=== PATIENT | male | born 1985 | race Caucasian/White ===

== ENCOUNTER 2019-02-09 13:56 | Emergency (ER) | payer BC ==
[2019-02-09] MEDS ORDERED: Ketorolac 30 MG/ML SDV IVPUSH ONE (14:02)
[2019-02-09] MEDS ORDERED: Sodium Chloride 0.9% 1,000 ML IV ONE (14:02)
[2019-02-09] MEDS ORDERED: Ondansetron 4 MG/2 ML SDV IVPUSH ONE (14:07)
[2019-02-09] MEDS ORDERED: Morphine 4 MG/ML Syringe IVPUSH ONE (14:07)
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
[2019-02-09 15:17] LABS: CARBON DIOXIDE,CO2 26.4 mmol/L (21.0-32.0)
[2019-02-09] MEDS ORDERED: Tamsulosin 0.4 MG Cap.ER PO ONE (16:00)
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
== END 2019-02-09 16:44 | disposition home or self-care (01) ==
LOC: MW.ED 13:56
DX: N13.2 Hydronephrosis with renal and ureteral calculous obstruction (principal)
CPT/HCPCS: 36415; 74176; 80053; 81001; 85025; 96361; 96374; 96375; 99284; J1885; J2270; J2405; J7040; 99283

== ENCOUNTER 2019-02-23 08:56 | Day surgery (SDC) | payer BC ==
[~2019-02-23 08:56] MED LIST: Lactated Ringers 1,000 ML IV SCH; Sodium Chloride 0.9% 10 ML SDV IV PRN; Sodium Chloride 0.9% 10 ML Syringe FLUSH PRN; Sodium Chloride 0.9% 2.5 ML Syringe FLUSH PRN; ceFAZolin 1 GM Vial IV ONE
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
[2019-02-23] MEDS ORDERED: Iopamidol 408 MG/ML 50 ML SDV ONE (10:19)
[2019-02-23] MEDS ORDERED: Ondansetron 4 MG/2 ML SDV ONE (10:22)
[2019-02-23] MEDS ORDERED: Lidocaine 2% 5 ML SDV ONE (10:22)
[2019-02-23] MEDS ORDERED: Midazolam 1 MG/ML 2 ML SDV ONE (10:22)
[2019-02-23] MEDS ORDERED: fentaNYL 250 MCG/5 ML SDV ONE (10:23)
[2019-02-23] MEDS ORDERED: Propofol 200 MG/20 ML SDV ONE (10:26)
[2019-02-23] MEDS ORDERED: ceFAZolin/Dextrose,Iso-Osmotic 2 GM/50 ML Duplex Bag IV ONE (11:07)
[2019-02-23] MEDS ORDERED: HYDROmorphone 2 MG/ML Syringe ONE (11:12)
[2019-02-23] MEDS ORDERED: Albuterol 0.083% 2.5 MG/3 ML Neb Soln NEB PRN (11:57)
[2019-02-23] MEDS ORDERED: Atropine 0.1 MG/ML 10 ML Syringe IVPUSH PRN ×2 (11:57)
[2019-02-23] MEDS ORDERED: 50% Dextrose in Water 50 ML Syringe IVPUSH PRN (11:57)
[2019-02-23] MEDS ORDERED: EPINEPHrine 1:10,000 1 MG/10 ML Syringe IVPUSH PRN (11:57)
[2019-02-23] MEDS ORDERED: Naloxone 0.4 MG/ML Syringe IVPUSH PRN (11:57)
[2019-02-23] MEDS ORDERED: fentaNYL 100 MCG/2 ML SDV IVPUSH PRN (11:57)
[2019-02-23] MEDS ORDERED: Acetaminophen/HYDROcodone 325-5 MG Tab PO PRN (12:19)
[2019-02-23] MEDS ORDERED: Ketorolac 30 MG/ML SDV IVPUSH ONE (12:19)
[2019-02-23] MEDS ORDERED: Ondansetron 4 MG Tab PO PRN (12:19)
--- NOTE | 2019-02-23 12:43 | PCM.POSTAN ---
POST ANESTHESIA ASSESSMENT - MENTAL STATUS Mental Status: Alert, Oriented - VITAL SIGNS Vital Signs: Last Vital Signs Temp 98.8 F 02/23/19 12:14 Pulse 76 02/23/19 12:39 Resp 11 L 02/23/19 12:39 BP 123/67 02/23/19 12:39 Pulse Ox 97 02/23/19 12:39 - RESPIRATORY Respiratory Status: Respiratory Rate WNL, Airway Patent, O2 Saturation Stable - CARDIOVASCULAR CV Status: Pulse Rate WNL, Blood Pressure Stable - GASTROINTESTINAL GI Status: No Symptoms - PAIN Pain Score: 0 - POST OP HYDRATION Hydration Status: Adequate & Stable - OBSERVATIONS Free Text/Narrative:: Pt stable with no complaints. VSS. No apparent anesthesia complications.
--- NOTE | 2019-02-23 12:53 | PCM48HPAN ---
Post Anesthesia Note - EVALUATION WITHIN 48HRS OF ANESTHETIC Vital Signs in Normal Range: Yes Patient Participated in Evaluation: Yes Respiratory Function Stable: Yes Airway Patent: Yes Cardiovascular Function Stable: Yes Hydration Status Stable: Yes Pain Control Satisfactory: Yes Nausea and Vomiting Control Satisfactory: Yes Mental Status Recovered: Yes Vital Signs: Last Vital Signs Temp 98.8 F 02/23/19 12:14 Pulse 76 02/23/19 12:39 Resp 11 L 02/23/19 12:39 BP 123/67 02/23/19 12:39 Pulse Ox 97 02/23/19 12:39 - COMMENTS/OBSERVATIONS Free Text/Narrative:: Pt stable and family @ bedside.
--- NOTE | 2019-02-23 16:58 | OR ---
SURGEON: Rayna Ro M.D. DATE OF PROCEDURE: 02/23/2019 PREOPERATIVE DIAGNOSIS: Left ureteral stone, 6 mm. POSTOPERATIVE DIAGNOSIS: Left ureteral stone, 6 mm. OPERATIONS: Left ureteroscopy, laser lithotripsy, stone removal, double-J stent placement. DESCRIPTION OF PROCEDURE: The patient was given general anesthesia. He was placed in dorsal lithotomy position, prepped and draped in sterile drapes. Cystourethroscopy was done that was normal. A guidewire was advanced in the left ureter, but could not go beyond the stone, so a Glidewire was used to gain access into the renal pelvis alongside the stone. The lower ureter was then dilated using UroMax II balloon dilator to approximately 15-Guyanese. Rigid ureteroscope was used to gain access into the ureter. The stone was visualized and broken up into multiple small pieces that were removed. At the end, a 6-Guyanese 26 cm double-J stent was placed. The position was confirmed on fluoroscopy. The bladder was emptied. The string at the end of the stent was taped to the outside of the penis. The patient tolerated the procedure well and was moved to recovery room in good condition. PLAN: He comes to the office in 1 week to have his double-J stent taken out. FRANK / JOHANN /[id number]
[2019-02-24] MEDS ORDERED: Tamsulosin 0.4 MG Cap.ER PO SCH (09:00)
--- NOTE | 2019-02-26 13:13 | CR ---
Abdomen: Four fluoroscopic spot views were obtained utilizing C-arm device. Study shows placement of a left ureteral stent. Balloon catheter is noted. Fluoroscopy time was 14.5 seconds Impression: Procedural study. Diagnostic code #2 MTDD
== END 2019-02-23 14:25 | disposition home or self-care (01) ==
LOC: MW.SDS 08:56
PROVIDERS: ATTEND Urology
DX: N20.1 Calculus of ureter (principal); F17.210 Nicotine dependence, cigarettes, uncomplicated; E66.9 Obesity, unspecified; Z68.34 Body mass index [BMI] 34.0-34.9, adult
CPT/HCPCS: 52356; 76000; J0131; J0690; J1170; J2001; J2250; J2405; J2704; J3010; J7120; Q9966; 88300; C1769; C2617

== ENCOUNTER 2023-02-19 16:40 | Emergency (ER) | payer BC, OTHER ==
[2023-02-19] MEDS ORDERED: Aspirin 81 MG Tab.Chew PO ONE (17:02)
[2023-02-19 17:29] LABS: BASOPHILS PERCENT AUTO 0.2 % (0.0-1.5); EOSINOPHILS ABSOLUTE AUTO 0.2 K/uL (0.0-0.7); EOSINOPHILS PERCENT AUTO 2.4 % (0.0-7.0); HEMATOCRIT 45.6 % (38.0-50.0); HEMOGLOBIN 15.6 g/dL (13.0-17.0); LYMPHOCYTES ABSOLUTE AUTO 2.1 K/uL (0.6-2.4); LYMPHOCYTES PERCENT AUTO 26.2 % (16.0-40.0); MEAN CORPUSCULAR HEMOGLOBIN 27.8 pg (27.0-32.0); MEAN CORPUSCULAR HGB CONC 34.2 g/dL (31.0-37.0); MEAN CORPUSCULAR VOLUME 81.1 fL (80.0-98.0); MONOCYTES ABSOLUTE AUTO 0.7 K/uL (0.0-0.8); MONOCYTES PERCENT AUTO 8.9 % (0.0-15.0); NEUTROPHILS PERCENT AUTO 62.3 % (48.0-80.0); NRBC ABSOLUTE 0 K/uL; PLATELET COUNT,PLT 254 K/uL (150-400); RED BLOOD CELL COUNT 5.62 M/uL (4.50-5.90); WHITE BLOOD CELL COUNT,WBC 8.02 K/uL (4.0-11.0)
[2023-02-19 18:03] LABS: A/G RATIO 1.1 (0.9-1.6); ALBUMIN 3.8 g/dL (3.4-5.0); BILIRUBIN TOTAL 0.4 mg/dL (0.2-1.0); CALCIUM 9.6 mg/dL (8.5-10.1); CARBON DIOXIDE,CO2 27.2 mmol/L (21.0-32.0); CREATININE 1.1 mg/dL (0.8-1.3); EST CRCL DRUG DOSING (CG) 81.53 mL/min; MAGNESIUM 2.2 mg/dL (1.8-2.4); POTASSIUM,K 4.2 mmol/L (3.5-5.1); PROTEIN TOTAL,TP 7.3 g/dL (6.4-8.2)
[2023-02-19 18:41] LABS: INR 1.02 (0.86-1.11); PTT,PARTIAL THROMBOPLSTIN TIME 30.1 SEC (23.9-30.7)
[2023-02-19 18:43] LABS: D-DIMER QUANTITATIVE < 0.19 mg/L FEU (0.00-0.50)
== END 2023-02-19 19:16 | disposition home or self-care (01) ==
LOC: MW.ED 16:40
DX: R07.9 Chest pain, unspecified (principal); E66.9 Obesity, unspecified; Z79.899 Other long term (current) drug therapy; Z68.37 Body mass index [BMI] 37.0-37.9, adult
CPT/HCPCS: 36415; 71045; 80053; 83735; 84484; 85025; 85379; 85610; 85730; 93005; 99285; A9270; 93010; 99283